=== PATIENT | female | born 1960 | race African-American/Black ===

== ENCOUNTER 2021-04-18 13:30 | Emergency (ER) | payer MEDICAID ==
[~2021-04-18] VITALS: Ht 167.6 cm; Wt 68.0 kg
[~2021-04-18 13:30] MED LIST: BENA20TA10; HYDR12.529; SULF-165
[2021-04-18] MEDS ORDERED: PERM60CR4 TP (15:36)
[2021-04-18 15:48] VITALS: BP 169/89
== END 2021-04-18 15:49 | disposition home or self-care (01) ==
LOC: ER 13:30
DX: B85.0 Pediculosis due to Pediculus humanus capitis (principal)
CPT/HCPCS: 99282